=== PATIENT | male | born 1985 ===

== ENCOUNTER 2023-01-20 06:36 | Inpatient (IN) | payer OTHER ==
[2023-01-20] VITALS (19 sets, daily range): BP systolic 118–147; BP diastolic 64–96
[~2023-01-20] VITALS: Ht 185.4 cm; Wt 93.0 kg
[~2023-01-20 06:36] MED LIST: COLL140L TOP; LISI5TAB22 PO; cefazolin 2gm/D5W 100mL 100 ML IV ONE; famotidine 20mg tablet PO ONE; ringers solution, lacted 1,000 ML IV SCH
[2023-01-20] MEDS ORDERED: midazolam 1 mg/ML 2ml injection ONE (10:08)
[2023-01-20] MEDS ORDERED: fentaNYL /PF 50mcg/ml 5ml ampule ONE (10:09)
[2023-01-20] MEDS ORDERED: epiNEPHrine 1 mg/ml 30ml MDV ONE (10:46)
[2023-01-20] MEDS ORDERED: ondansetron/PF 4mg/2ml inj IV PRN ×3 (11:40→13:30)
[2023-01-20] MEDS ORDERED: morphine 2 MG/ML inj. syringe IV PRN ×2 (11:40)
[2023-01-20] MEDS ORDERED: ROPIVAcaine 0.2% (10 MG/5 ML) BOLUS INJECTION INTERSCALE PRN (11:40)
[2023-01-20] MEDS ORDERED: meperidine/PF 25mg/ml syringe IV PRN ×6 (11:40)
[2023-01-20] MEDS ORDERED: ringers solution, lacted 1,000 ML IV SCH ×2 (11:40)
[2023-01-20] MEDS ORDERED: proCHLORperazine 10 MG/2 ml inj IV PRN ×2 (11:40)
[2023-01-20] MEDS ORDERED: morphine 4 MG/ML inj SYRINge IV PRN ×2 (11:40)
[2023-01-20] MEDS ORDERED: acetaminophen 1,000mg/100ml IV 100 ML IV ONE (11:42)
[2023-01-20] MEDS ORDERED: bisacodyl 10mg suppository rectal RC PRN (13:30)
[2023-01-20] MEDS ORDERED: naloxone 0.4 mg/ml inj IV PRN (13:30)
[2023-01-20] MEDS ORDERED: HYDROcodone/acetaminophen 10/325mg tab PO PRN (13:30)
[2023-01-20] MEDS ORDERED: oxyCODONE IR 5mg (immed. release) tablet PO PRN ×2 (13:30)
[2023-01-20] MEDS ORDERED: diphenhydrAMINE 25mg capsule PO PRN ×2 (13:30)
[2023-01-20] MEDS ORDERED: magnesium hydroxide 30ml (MOM) UD suspension PO PRN (13:30)
[2023-01-20] MEDS ORDERED: acetaminophen 325mg tablet PO PRN ×2 (13:30)
--- NOTE | 2023-01-20 13:34 | NUR ---
Received from OR via ORTHO BED , accompanied by Anesthesiologist HANNA and report given by Anesthesiolgist. PATIENT WITH 20G PIV IN LEFT UE RUNNING LR AT 100. PATIENT WITH ON Q PUMP APPLIED UPON ARRIVAL. PATIENT WITH ANTERIOR RIGHT SHOULDER DRESSING THAT IS CDI. PATIENT WITH + RADIAL PULSE PRESENT. SCDS DONNED UPON ARRIVAL.10L MASK ON WITH 97% SATURATIONS. Addendum: 01/20/23 at 1410 by Mauro Hopkins RN, RN Amended: Links added.
[2023-01-20] MEDS ORDERED: ROPIVAcaine 0.5% (5mg/ml) 30ml vial ONE (14:09)
[2023-01-20] MEDS ORDERED: dexamethasone sod phosphate 4mg/ml inj. ONE (14:09)
[2023-01-20] MEDS ORDERED: propofol inj 20 ML IV ONE (14:09)
[2023-01-20] MEDS ORDERED: ondansetron/PF 4mg/2ml inj ONE (14:09)
[2023-01-20] MEDS ORDERED: LIDOcaine 1%/PF 5ML 10 MG/ML VIAL ONE (14:09)
[2023-01-20] MEDS: ROPIVAcaine 0.2%/PF PUMP/bolus 545 ML INTERSCALE SCH (14:11)
--- NOTE | 2023-01-20 15:03 | NUR ---
Patient in room PAS IN 900. I have received report from Qian and had the opportunity to ask questions and assume patient care. Addendum: 01/20/23 at 1504 by Dolores Dowling RN Received report from Mauro
--- NOTE | 2023-01-20 15:04 | NUR ---
REPORT GIVEN AND ALL QUESTIONS ANSWERED. PATIENT TRANSFERRED TO SURG/ORTHO. TRANSFER:LABELED BELONGINGS PRESENT AND DELIVERED TO ROOM. RN PRESENT ALL CRITERIA FOR TRANSFER BACK TO THE FLOOR HAS BEEN ACHIEVED. VSS. PAIN AT A TOLERABLE LEVEL. BED LOW, CALL LIGHT PRESENT AND 2 RAILS DOWN. RN AWARE THAT PATIENT HAS ARRIVED.DENNIS PRESENT TO ACCEPT CARE OF PATIENT.URSULA Harper PRESENT WITH PATIENT. BELONGINGS WITH PATIENT. Addendum: 01/20/23 at 1514 by Mauro Hopkins RN, RN Amended: Links added.
--- NOTE | 2023-01-20 15:12 | NUR ---
Patient arrived to the floor, tucked in. Doing well so far.
--- NOTE | 2023-01-20 18:00 | NUR ---
Patient in room ORTHO 4007. I have received report from STEPHEN Bernal and had the opportunity to ask questions and assume patient care.
--- NOTE | 2023-01-20 18:16 | NUR ---
Problems reprioritized. Patient report given, questions answered & plan of care reviewed with Nola.
[2023-01-20] MEDS: gabapentin 300mg capsule PO SCH (20:28)
[2023-01-20] MEDS: sennosides 8.6mg tablet PO SCH (20:28)
[2023-01-21 01:27] VITALS: BP 118/58
--- NOTE | 2023-01-21 06:10 | NUR ---
Problems reprioritized. Patient report given, questions answered & plan of care reviewed with STEPHEN Pearce.
--- NOTE | 2023-01-21 06:23 | NUR ---
Patient in room ORTHO 4007. I have received report from Nola and had the opportunity to ask questions and assume patient care.
[2023-01-21 07:00] VITALS: BP 110/64
[2023-01-21] MEDS: gabapentin 300mg capsule PO SCH ×3 (08:32→20:20)
[2023-01-21] MEDS: lisinopril 5mg tablet PO SCH (08:32)
[2023-01-21] MEDS: aspirin 325mg tablet PO SCH (08:32)
[2023-01-21 10:00] VITALS: BP 123/68
[2023-01-21] MEDS ORDERED: COLLOIDAL OATMEAL TOP PRN (10:00)
[2023-01-21 13:50] VITALS: BP 116/63
[2023-01-21 18:00] VITALS: BP 113/61
--- NOTE | 2023-01-21 18:00 | NUR ---
Patient in room ORTHO 4007. I have received report from STEPHEN Oliveros and had the opportunity to ask questions and assume patient care.
[2023-01-21] MEDS: sennosides 8.6mg tablet PO SCH (20:21)
[2023-01-21 22:00] VITALS: BP 121/67
[2023-01-22] MEDS: HYDROcodone/acetaminophen 10/325mg tab PO PRN ×3 (05:31→20:15)
[2023-01-22 06:00] VITALS: BP 123/71
--- NOTE | 2023-01-22 06:25 | NUR ---
Problems reprioritized. Patient report given, questions answered & plan of care reviewed with LORA Liu.
--- NOTE | 2023-01-22 06:34 | NUR ---
Problems reprioritized. Patient report received from STEPHEN Kelsey. ,questions answered & plan of care reviewed.
[2023-01-22] MEDS: aspirin 325mg tablet PO SCH (07:30)
[2023-01-22] MEDS: lisinopril 5mg tablet PO SCH (07:30)
[2023-01-22] MEDS: gabapentin 300mg capsule PO SCH ×3 (07:30→20:15)
[2023-01-22 10:00] VITALS: BP 137/77
[2023-01-22] MEDS: ROPIVAcaine 0.2%/PF PUMP/bolus 545 ML INTERSCALE SCH (11:40)
--- NOTE | 2023-01-22 15:02 | NUR ---
WINDSCREEN FITTER documentation: I have reviewed and agree with all interventions, assessments performed and documented by Alexa Milner LVN.
[2023-01-22 18:00] VITALS: BP 128/72
--- NOTE | 2023-01-22 18:08 | NUR ---
Problems reprioritized. Patient report given, questions answered & plan of care reviewed with STEPHEN Kelsey
--- NOTE | 2023-01-22 18:15 | NUR ---
Patient in room ORTHO 4007. I have received report from LORA Liu and had the opportunity to ask questions and assume patient care.
[2023-01-22] MEDS: sennosides 8.6mg tablet PO SCH (20:15)
[2023-01-22 22:00] VITALS: BP 128/79
[2023-01-23] MEDS: HYDROcodone/acetaminophen 10/325mg tab PO PRN ×3 (05:48→18:00)
[2023-01-23 06:00] VITALS: BP 150/88
--- NOTE | 2023-01-23 06:21 | NUR ---
Problems reprioritized. Patient report received from STEPHEN Kelsey. Questions answered & plan of care reviewed.
--- NOTE | 2023-01-23 06:24 | NUR ---
Problems reprioritized. Patient report given, questions answered & plan of care reviewed with LORA Liu.
[2023-01-23] MEDS: gabapentin 300mg capsule PO SCH ×3 (07:21→19:57)
[2023-01-23] MEDS: lisinopril 5mg tablet PO SCH (07:21)
[2023-01-23] MEDS: aspirin 325mg tablet PO SCH (08:43)
[2023-01-23 10:00] VITALS: BP 133/74
--- NOTE | 2023-01-23 15:15 | NUR ---
SPEECH THERAPY ASSISTANT documentation: I have reviewed and agree with all interventions, assessments performed and documented by Alexa Milner LVN.
[2023-01-23 18:00] VITALS: BP 128/76
--- NOTE | 2023-01-23 18:00 | NUR ---
Patient in room ORTHO 4007. I have received report from LORA Liu and had the opportunity to ask questions and assume patient care.
--- NOTE | 2023-01-23 18:22 | NUR ---
Problems reprioritized. Patient report given, questions answered & plan of care reviewed Bessie MITCHELL
[2023-01-23] MEDS: sennosides 8.6mg tablet PO SCH (19:56)
[2023-01-23 22:00] VITALS: BP 156/74
[2023-01-24] MEDS: HYDROcodone/acetaminophen 10/325mg tab PO PRN (04:51)
--- NOTE | 2023-01-24 04:52 | NUR ---
Dressing changed ,11 sandra dry and intact.
[2023-01-24 06:00] VITALS: BP 123/74
--- NOTE | 2023-01-24 06:03 | NUR ---
Problems reprioritized. Patient report given, questions answered & plan of care reviewed with STEPHEN Almonte.
[2023-01-24] MEDS: gabapentin 300mg capsule PO SCH ×3 (08:13→20:04)
[2023-01-24] MEDS: aspirin 325mg tablet PO SCH (08:13)
[2023-01-24] MEDS: lisinopril 5mg tablet PO SCH (08:13)
[2023-01-24 10:00] VITALS: BP 133/87
--- NOTE | 2023-01-24 12:18 | NUR ---
Initial: Pt admit for right shoulder sprain, currently POD #4 s/p repair of right rotator cuff. Pt on a regular diet and eating well, documented with 100% PO intake since admit meeting estimated nutrient needs. LBM 01/23 per I&O. No nutrition intervention implemented at this time. Will continue to follow and make recommendations as appropriate. Recommendations: 1) Continue regular diet 2) Monitor need for additional protein/food for satiety 3) Routine bowel care 4) Weekly scaled weights Addendum: 01/24/23 at [address] Amended: Links added.
--- NOTE | 2023-01-24 17:02 | NUR ---
Pt has few needs. pt has not required any pain medication this am shift. guards remain in room, will continue to monitor pt
[2023-01-24 18:00] VITALS: BP 131/78
[2023-01-24] MEDS: sennosides 8.6mg tablet PO SCH (20:08)
[2023-01-24 22:00] VITALS: BP 127/74
--- NOTE | 2023-01-24 22:52 | NUR ---
NEON SIGN MECHANIC documentation: I have reviewed and agree with all interventions, assessments performed and documented by MATEUS Joshi
[2023-01-25 06:00] VITALS: BP 123/74
--- NOTE | 2023-01-25 06:00 | NUR ---
Patient in room ORTHO 4007. I have received report from Josef PAULINO and had the opportunity to ask questions and assume patient care.
[2023-01-25 08:37] VITALS: BP_SYST 123
[2023-01-25] MEDS: gabapentin 300mg capsule PO SCH ×2 (08:37→13:00)
[2023-01-25] MEDS: lisinopril 5mg tablet PO SCH (08:37)
[2023-01-25] MEDS: aspirin 325mg tablet PO SCH (08:38)
[2023-01-25] MEDS ORDERED: acetaminophen 325mg tablet PO STA (10:55)
[2023-01-25] MEDS ORDERED: ibuprofen tablet 400 MG TABLET PO ONE (10:55)
[2023-01-25] MEDS ORDERED: ibuprofen tablet 400 MG TABLET PO SCH (12:30)
[2023-01-25] MEDS ORDERED: acetaminophen 325mg tablet PO SCH (13:00)
--- NOTE | 2023-01-25 15:27 | NUR ---
Patient IV removed and dressed. Patient is alert and appropriate for transfer. [employer] guards walked patient down and into the facility vehicle.
== END 2023-01-25 15:10 | DRG 502 ==
LOC: PAS IN 06:36 → EEVIPCON 09:45 → ORTHO 4S 15:22
PROVIDERS: ADMIT Orthopaedic Surgery; ATTEND Orthopaedic Surgery
PROC: 3E0T3BZ Introduction of Anesthetic Agent into Peripheral Nerves and Plexi, Percutaneous Approach (ICD-10-PCS; 2023-01-20)
PROC: 0LM14ZZ Reattachment of Right Shoulder Tendon, Percutaneous Endoscopic Approach (ICD-10-PCS; principal; 2023-01-20 11:00)
DX: M75.121 Complete rotator cuff tear or rupture of right shoulder, not specified as traumatic (principal); M65.811 Other synovitis and tenosynovitis, right shoulder; S43.491A Other sprain of right shoulder joint, initial encounter; X58.XXXA Exposure to other specified factors, initial encounter; Y93.89 Activity, other specified; Y92.89 Other specified places as the place of occurrence of the external cause; Y99.8 Other external cause status; Z79.899 Other long term (current) drug therapy
CPT/HCPCS: 82948; 97110; 97161; 97530; A6258; A6402; A6449; G0378; J0131; J0171; J0690; J1100; J2250; J2405; J2704; J2795; J3010; J3490; J7120